=== PATIENT | male | born 1980 | race Caucasian/White ===

== ENCOUNTER 2020-09-30 10:55 | Emergency (ER) | payer SELFPAY ==
[2020-09-30] MEDS ORDERED: Tetracaine HCl/PF 0.5% 4 ML Bottle EYELF ONE (11:42)
--- NOTE | 2020-09-30 12:15 | EDM.PDOC ---
ED HPI GENERAL MEDICAL PROBLEM - General Chief Complaint: ENT Problem Stated Complaint: SOMETHING IN EYE Time Seen by Provider: 09/30/20 11:36 Source of Information: Reports: Patient History Limitations: Reports: No Limitations - History of Present Illness INITIAL COMMENTS - FREE TEXT/NARRATIVE: 40 yo presents to ER with left eye. It began last evening as soon as he took out his contact. He did look at his contact and it was complete. Denies vision changes. mild irritation all day. no discharge Left Eye Pain Score (Numeric/FACES): 5 - Related Data Allergies Allergy/AdvReac Type Severity Reaction Status Date / Time Penicillins Allergy Other Verified 09/30/20 11:29 Home Meds: Home Meds NK [No Known Home Meds] 09/30/20 [History] Past Medical History HEENT History: Reports: Impaired Vision Musculoskeletal History: Reports: Fracture Social & Family History - Caffeine Use Caffeine Use: Reports: Soda ED ROS ENT - Review of Systems Review Of Systems: See Below Constitutional: Denies: Fever, Chills HEENT: Reports: Contact Lenses, Eye Pain Respiratory: Denies: Shortness of Breath, Wheezing Cardiovascular: Denies: Chest Pain GI/Abdominal: Denies: Abdominal Pain ED EXAM, ENT - Physical Exam Exam: See Below Exam Limited By: No Limitations General Appearance: Alert, WD/WN, No Apparent Distress Eye Exam: Right Eye: Normal Inspection, Left Eye: Conjunctival Injection, Corneal Abrasion, Bilateral Eye: EOMI, PERRL Head: Atraumatic, Normocephalic Respiratory/Chest: No Respiratory Distress Course - Vital Signs Last Recorded V/S: Last Vital Signs Temp 36.6 C 09/30/20 11:29 Pulse 76 09/30/20 11:29 Resp 16 09/30/20 11:29 BP 133/80 09/30/20 11:29 Pulse Ox 99 09/30/20 11:29 - Orders/Labs/Meds Meds: Medications Discontinued Medications Generic Name Dose Route Start Last Admin Trade Name Freq PRN Reason Stop Dose Admin Tetracaine HCl 3 ml 09/30/20 11:42 09/30/20 12:28 Tetracaine Hcl/Pf 0.5% 4 Ml Bottle EYELF 09/30/20 11:43 3 ml ASDIRECTED ONE Administration - Re-Assessments/Exams Free Text/Narrative Re-Assessment/Exam: 09/30/20 22:34 corneal abrasion identified with staining. Will initiate antibiotic gtts and follow-up with primary care if no improvement Departure - Departure Time of Disposition: 12:15 Disposition: Home, Self-Care 01 Condition: Good Clinical Impression: Corneal abrasion due to contact lens Qualifiers: Laterality: left Qualified Code(s): H18.822 - Corneal disorder due to contact lens, left eye - Discharge Information *PRESCRIPTION DRUG MONITORING PROGRAM REVIEWED*: Not Applicable *COPY OF PRESCRIPTION DRUG MONITORING REPORT IN PATIENT LOREN: Not Applicable Instructions: Corneal Abrasion, [id number] Referrals: PCP,None [Primary Care Provider] - Forms: ED Department Discharge Additional Instructions: polytrim 2 gtt twice daily follow-up with your eye doctor if this has not dramatically improved by Wed Sepsis Event Note (ED) - Evaluation Sepsis Screening Result: No Definite Risk - Focused Exam Vital Signs: Vital Signs Temp Pulse Resp BP Pulse Ox 09/30/20 11:29 36.6 C 76 16 133/80 99 09/30/20 11:24 36.6 C 76 16 133/80 99
== END 2020-09-30 12:27 | disposition home or self-care (01) ==
LOC: JP.ED 10:55
DX: H18.822 Corneal disorder due to contact lens, left eye (principal); Z88.0 Allergy status to penicillin
CPT/HCPCS: 99283